=== PATIENT | female | born 1970 | race American Indian/Alaskan Native ===

== ENCOUNTER 2022-07-12 18:42 | Emergency (ER) | payer SELFPAY ==
[2022-07-12 19:32] VITALS: BP 204/105
--- NOTE | 2022-07-12 20:28 | XRay Report ---
CHEST 2 VIEWS INDICATION / CLINICAL INFORMATION: CHEST PAIN. COMPARISON: None available. FINDINGS: SUPPORT DEVICES: None. HEART / MEDIASTINUM: No significant abnormality. LUNGS / PLEURA: No significant pulmonary or pleural abnormality. No pneumothorax. ADDITIONAL FINDINGS: No significant additional findings. IMPRESSION: 1. No acute findings. Signer Name: Michel José MD Signed: 07/12/2022 8:23 PM Workstation Name: [id number]
--- NOTE | 2022-07-13 13:37 | Electrocardiograph Report ---
[facility] Test Date: 2022-07-12 Test Time: 19:36:51 Pat Name: KELLIE PIPER Department: Room: Gender: F Collision Technician: CORINE : 1970 Requested By: ELIZABETH PELAEZ Order Number: [id number] Reading MD: Meri Avina Measurements Intervals [place] Rate: 58 P: 59 NC: 162 QRS: -24 QRSD: 99 T: 29 QT: 416 QTc: 409 Interpretive Statements Sinus rhythm Probable left atrial enlargement Probable left ventricular hypertrophy No previous ECG available for comparison Electronically Signed On 07-13-2022 13:37:35 EDT by Meri Avina
== END 2022-07-12 20:48 | disposition left against medical advice (07) ==
LOC: ED 18:42
DX: R07.9 Chest pain, unspecified (principal); Z53.21 Procedure and treatment not carried out due to patient leaving prior to being seen by health care provider
CPT/HCPCS: 71046; 93005